=== PATIENT | male | born 1955 | race Caucasian/White ===

== ENCOUNTER 2020-09-25 04:49 | Day surgery (SDC) | payer OTHER ==
[2020-09-24 09:56] VITALS: BMI 26.1
[2020-09-25 08:36] VITALS: TEMP 97.7
[2020-09-25 09:41] VITALS: BP 120/69; PULSE 55
== END 2020-09-25 09:31 | disposition home or self-care (01) ==
LOC: JASU-ENDO 04:49
PROVIDERS: ATTEND Internal Medicine Gastroenterology
PROC: 0DJD8ZZ Inspection of Lower Intestinal Tract, Via Natural or Artificial Opening Endoscopic (ICD-10-PCS; principal; 2020-09-25 08:00)
DX: Z12.11 Encounter for screening for malignant neoplasm of colon (principal); Z86.010 Personal history of colon polyps